=== PATIENT | female | born 1990 | race Caucasian/White ===

== ENCOUNTER 2020-06-01 21:04 | Emergency (ER) | payer BC ==
[~2020-06-01] VITALS: Ht 162.6 cm; Wt 65.8 kg
[2020-06-01 21:27] VITALS: BP 137/88
[2020-06-01] MEDS ORDERED: ACETAMINOPHEN 325 MG TAB PO ONE (23:20)
[2020-06-01] MEDS ORDERED: IBUPROFEN 400 MG TAB PO ONE (23:20)
[2020-06-02 00:20] VITALS: BP 124/88
== END 2020-06-02 00:20 | disposition home or self-care (01) ==
LOC: MED 21:04
DX: R09.1 Pleurisy (principal); R07.89 Other chest pain; J45.909 Unspecified asthma, uncomplicated; Z90.49 Acquired absence of other specified parts of digestive tract
CPT/HCPCS: 36415; 71045; 85379; 93005; 99284

== ENCOUNTER 2023-09-09 15:43 | Emergency (ER) | payer BC, OTHER ==
[~2023-09-09] VITALS: Ht 162.6 cm; Wt 68.5 kg
[2023-09-09 15:48] VITALS: BP 130/80; PULSE 73; RESP 16; TEMP 97; O2SAT 100
[2023-09-09 16:29] LABS: BASOPHILS % (AUTO) 0.4 % (0.0-2.0); EOSINOPHILS # (AUTO) 0.1 K/uL (0-0.4); EOSINOPHILS % (AUTO) 1.3 % (0.0-4.0); HEMATOCRIT 39.5 % (36-48); HEMOGLOBIN 13.3 g/dL (12.0-16.0); LYMPHOCYTES # (AUTO) 1.3 K/uL (2.5-16.5); LYMPHOCYTES % (AUTO) 14.8 % (20.5-51.1); MEAN CORPUSCULAR HEMOGLOBIN 30 pg (27-31); MEAN CORPUSCULAR HGB CONC 34 g/dL (33-37); MEAN CORPUSCULAR VOLUME 87.4 fL (80-94); MONOCYTES # (AUTO) 0.4 K/uL (0.8-1.0); NEUTROPHILS # (AUTO) 6.8 K/uL (1.8-7.7); NEUTROPHILS % (AUTO) 78.5 % (42.2-75.2); PLATELET COUNT (AUTO) 361 K/uL (140-450); RED BLOOD CELL COUNT(AUTO) 4.52 MIL/uL (4.20-5.40); RED CELL DISTRIBUTION WIDTH 13.5 % (11.6-13.7); WHITE BLOOD COUNT (AUTO) 8.6 K/uL (4.8-10.8)
[2023-09-09 16:48] LABS: ANION GAP 13.9 (8-16); CALCIUM 9.4 mg/dL (8.5-10.1); CARBON DIOXIDE 25.7 mmol/L (21-32); CREATININE 0.8 mg/dL (0.6-1.3); POTASSIUM 3.6 mmol/L (3.5-5.1)
[2023-09-09 17:02] LABS: FREE T4 (FREE THYROXINE) 0.95 ng/dL (0.76-1.46); THYROID STIMULATING HORMONE 1.35 uIU/mL (0.34-3.74)
[2023-09-09] MEDS ORDERED: DICYCLOMINE HCL LIQUID 10 MG/5 ML UDC ONE (17:31)
[2023-09-09] MEDS ORDERED: ALUMINUM HYD/MAG/SIMETHICONE 30 ML UDC ONE (17:31)
[2023-09-09 18:16] VITALS: BP 130/80; PULSE 73; RESP 16; TEMP 97; O2SAT 100
[2023-09-09] MEDS: ALUMINUM HYD/MAG/SIMETHICONE 30 ML, DICYCLOMINE HCL LIQUID 20 MG, LIDOCAINE VISCOUS 2% ... PO ONE (18:17)
== END 2023-09-09 19:02 | disposition home or self-care (01) ==
LOC: MED 15:43
DX: M54.2 Cervicalgia (principal); R10.13 Epigastric pain; R51.9 Headache, unspecified; R53.83 Other fatigue; R53.1 Weakness; F41.9 Anxiety disorder, unspecified; J45.909 Unspecified asthma, uncomplicated; Z90.49 Acquired absence of other specified parts of digestive tract
CPT/HCPCS: 36415; 80048; 81025; 84439; 84443; 84484; 85025; 93005; 99284